=== PATIENT | male | born 1975 | race African-American/Black ===

== ENCOUNTER 2021-12-09 15:30 | Emergency (ER) | payer SELFPAY ==
[~2021-12-09] VITALS: Ht 177.8 cm; Wt 91.0 kg
[2021-12-09] MEDS ORDERED: HYDROCODONE/ACETAMINOPHEN 5/325MG TABLET PO ONE (17:30)
[2021-12-09 19:30] VITALS: BP 133/92
[2021-12-09] MEDS ORDERED: IBUP-2029 MT (19:30)
[2021-12-09] MEDS ORDERED: AMOX-405 MT (19:30)
== END 2021-12-09 19:30 | disposition home or self-care (01) ==
LOC: ER 15:30
DX: S02.2XXA Fracture of nasal bones, initial encounter for closed fracture (principal); S09.8XXA Other specified injuries of head, initial encounter; Y04.0XXA Assault by unarmed brawl or fight, initial encounter; Y93.89 Activity, other specified; Y92.488 Other paved roadways as the place of occurrence of the external cause
CPT/HCPCS: 70486; 99284